=== PATIENT | female | born 1965 | race Hispanic/Latino ===

== ENCOUNTER 2020-11-20 08:57 | Emergency (ER) | payer BC ==
--- NOTE | 2020-11-20 09:58 | RAD REPORT ---
EXAM DESCRIPTION: RAD - Foot Left 3 View - 11/20/2020 9:52 am CLINICAL HISTORY: Left fourth toe pain COMPARISON: No comparisons FINDINGS: Oblique fracture is seen involving distal aspect of the proximal phalanx of the fourth toe with adjacent soft tissue swelling. Tiny calcaneal spur noted.
--- NOTE | 2020-11-20 10:13 | EDPHYS ---
Physician Documentation [facility] Name: Lorena Bowman Age: 55 yrs Sex: Female : 1965 Arrival Date: 11/20/2020 Time: 09:15 Bed 18 Private MD: ERIS Physician Ben Manjarrez HPI: 11/20 09:38 This 55 yrs old Female presents to ER via Ambulatory with complaints of Toe pm1 Injury. 09:38 The patient presents with pain, that is acute. The complaints affect the left fourth pm1 toe. Context: The problem was sustained at home, resulted from stubbing toe on furniture. the patient can fully bear weight, the patient is able to ambulate. Onset: The symptoms/episode began/occurred yesterday. Modifying factors: The symptoms are alleviated by elevation of extremity, the symptoms are aggravated by weight bearing, movement. Associated signs and symptoms: Pertinent positives: swelling, Pertinent negatives: numbness, tingling. Severity of symptoms: in the emergency department the symptoms are unchanged. The patient has not experienced similar symptoms in the past. The patient has not recently seen a physician. Historical: - Allergies: 09:19 No Known Allergies; ss - PSHx: 09:19 Hysterectomy; ss - Immunization history:: Adult Immunizations up to date. - Social history:: Smoking status: Patient denies any tobacco usage or history of. ROS: 09:38 MS/extremity: Positive for pain, tenderness, of the left fourth toe, Negative for pm1 deformity. 09:38 Constitutional: Negative for fever, chills, and weight loss, Cardiovascular: Negative for chest pain, palpitations, and edema, Respiratory: Negative for shortness of breath, cough, wheezing, and pleuritic chest pain, Skin: Negative for injury, rash, and discoloration, Neuro: Negative for headache, weakness, numbness, tingling, and seizure. 09:38 All other systems are negative. Exam: 09:38 Constitutional: This is a well developed, well nourished patient who is awake, alert, pm1 and in no acute distress. Head/Face: Normocephalic, atraumatic. 09:38 Skin: Warm, dry with normal turgor. Normal color with no rashes, no lesions, and no evidence of cellulitis. 09:38 Cardiovascular: Rate: normal, Rhythm: regular, Pulses: no pulse deficits are appreciated, brisk capillary refill to left 4th toe and all other left toes. 09:38 Musculoskeletal/extremity: Extremities: grossly normal except: noted in the left fourth toe: tenderness, There is no evidence of deformity, the left first toe, left second toe, left third toe, left fourth toe and left fifth toe Sensation intact. 09:38 Neuro: Exam negative for acute changes, Orientation: is normal, Mentation: is normal, Motor: is normal, moves all fours, Sensation: is normal, no obvious gross deficits. Vital Signs: 09:16 BP 136 / 73; Pulse 65; Resp 15; Temp 97.2(TE); Pulse Ox 98% on R/A; Weight 81.65 kg; ss Height 5 ft. 4 in. (162.56 cm); Pain 8/10; 10:30 BP 127 / 75; Pulse 67; Resp 17; Temp 97.5; Pulse Ox 99% ; bp 09:16 Body Mass Index 30.90 (81.65 kg, 162.56 cm) ss MDM: 09:21 Patient medically screened. pm1 09:29 ED course: Patient refused pain medications in the ER. pm1 09:47 Data reviewed: vital signs. Data interpreted: Pulse oximetry: on room air is 98 %. pm1 Interpretation: normal. 10:10 Counseling: I had a detailed discussion with the patient and/or guardian regarding: the pm1 historical points, exam findings, and any diagnostic results supporting the discharge/admit diagnosis, radiology results, the need for outpatient follow up, to return to the emergency department if symptoms worsen or persist or if there are any questions or concerns that arise at home. 10:17 ED course: Patient wants to take ibuprofen or Tylenol for pain at home. Does not want a pm1 prescription for anything stronger. 11/20 09:29 Order name: Foot Left 3 View XRAY; Complete Time: 10:09 pm1 11/20 10:10 Order name: Post-op Orthopedic Shoe; Complete Time: 10:30 pm1 11/20 10:17 Order name: Misc. Order: Jaron tape 4th toe; Complete Time: 10:30 pm1 Administered Medications: No medications were administered Disposition: 11/20/20 10:13 Discharged to Home. Impression: Other fracture of left lesser toe(s) - oblique fracture left fourth toe distal proximal phalanx. - Condition is Stable. - Discharge Instructions: Toe Fracture. - Medication Reconciliation Form, Thank You Letter, Antibiotic Education, Prescription Opioid Use form. - Follow up: Emergency Department; When: As needed; Reason: Worsening of condition. Follow up: Private Physician; When: 2 - 3 days; Reason: Recheck today's complaints, Continuance of care, Re-evaluation by your physician. - Problem is new. - Symptoms have improved. Addendum: 11/22/2020 09:38 Co-signature as Attending Physician, Ben Manjarrez MD I agree with the assessment and c norwood plan of care. Signatures: Dispatcher [employer] EDMS Ben Manjarrez MD MD cha Smirch, Shelby, RN RN ss Christo Steiner, SHAVON REPRESENTATIVE [employer] pm1 Randy Baeza RN RN bp Corrections: (The following items were deleted from the chart) 11/20 10:32 10:13 11/20/2020 10:13 Discharged to Home. Impression: Other fracture of left lesser bp toe(s) - oblique fracture left fourth toe distal proximal phalanx. Condition is Stable. Forms are Medication Reconciliation Form, Thank You Letter, Antibiotic Education, Prescription Opioid Use. Follow up: Emergency Department; When: As needed; Reason: Worsening of condition. Follow up: Private Physician; When: 2 - 3 days; Reason: Recheck today's complaints, Continuance of care, Re-evaluation by your physician. Problem is new. Symptoms have improved. pm1
--- NOTE | 2020-11-20 10:13 | ER ---
Nurse's Notes [facility] Name: Lorena Bowman Age: 55 yrs Sex: Female : 1965 Arrival Date: 11/20/2020 Time: 09:15 Bed 18 Private MD: Diagnosis: Other fracture of left lesser toe(s)-oblique fracture left fourth toe distal proximal phalanx Presentation: 11/20 09:16 Chief complaint: Patient states: L fourth toe pain after kicking wooden bed post ss yesterday morning. Coronavirus screen: Client denies travel out of the [place] in the last 14 days. Ebola Screen: Patient denies exposure to infectious person. Patient denies travel to an Ebola-affected area in the 21 days before illness onset. Initial Sepsis Screen: Does the patient meet any 2 criteria? No. Patient's initial sepsis screen is negative. Does the patient have a suspected source of infection? No. Patient's initial sepsis screen is negative. Risk Assessment: Do you want to hurt yourself or someone else? Patient reports no desire to harm self or others. Onset of symptoms was November 19, 2020. 09:16 Method Of Arrival: Ambulatory ss 09:16 Acuity: HEATHER 4 ss Triage Assessment: 09:20 General: Appears in no apparent distress. uncomfortable, obese, Behavior is bp cooperative, appropriate for age, anxious. Pain: Complains of pain in left fourth toe. EENT: No deficits noted. Neuro: No deficits noted. Cardiovascular: No deficits noted. Respiratory: No deficits noted. GI: No signs and/or symptoms were reported involving the gastrointestinal system. : No signs and/or symptoms were reported regarding the genitourinary system. Derm: No deficits noted. Musculoskeletal: Reports pain in left fourth toe. Historical: - Allergies: 09:19 No Known Allergies; ss - PSHx: 09:19 Hysterectomy; ss - Immunization history:: Adult Immunizations up to date. - Social history:: Smoking status: Patient denies any tobacco usage or history of. Screenin:31 Abuse screen: Denies threats or abuse. Denies injuries from another. Nutritional bp screening: No deficits noted. Tuberculosis screening: No symptoms or risk factors identified. Tuberculosis screening: No symptoms or risk factors identified. Fall Risk None identified. Assessment: :31 General: SEE TRIAGE NOTE. bp 10:30 Reassessment: PT D/C HOME AMBULATORY, DX WITH LEFT FOURTH TOE DISTAL FX. bp Vital Signs: 09:16 BP 136 / 73; Pulse 65; Resp 15; Temp 97.2(TE); Pulse Ox 98% on R/A; Weight 81.65 kg; ss Height 5 ft. 4 in. (162.56 cm); Pain 8/10; 10:30 BP 127 / 75; Pulse 67; Resp 17; Temp 97.5; Pulse Ox 99% ; bp 09:16 Body Mass Index 30.90 (81.65 kg, 162.56 cm) ED Course: 09:15 Patient arrived in ED. ds1 09:19 Triage completed. ss 09:19 Arm band placed on right wrist. ss 09:21 Christo Steiner NP is PHCP. pm1 09:21 Ben Manjarrez MD is Attending Physician. pm1 09:21 Randy Baeza, MAGDALENA is Primary Nurse. bp 09:31 Patient has correct armband on for positive identification. Placed in gown. Bed in low bp position. Call light in reach. Side rails up X2. 09:52 Foot Left 3 View XRAY In Process Unspecified. EDMS 10:30 No provider procedures requiring assistance completed. Patient did not have IV access bp during this emergency room visit. Jaron tape left fourth toe Ortho shoe applied to left foot. Administered Medications: No medications were administered Outcome: 10:13 Discharge ordered by . pm1 10:30 Discharged to home ambulatory. bp 10:30 Condition: stable 10:30 Discharge instructions given to patient, Instructed on discharge instructions, follow up and referral plans. Demonstrated understanding of instructions, follow-up care. 10:32 Patient left the ED. bp Signatures: Dispatcher [employer] EDKS Clay, Janet ds1 Lorene Art RN RN Christo Steiner NP PONY WORKER pm1 Randy Baeza, MAGDALENA RN bp
[2020-11-20 10:46] VITALS: BP 127/75; TEMP 97.5; O2SAT 99
== END 2020-11-20 10:32 | disposition home or self-care (01) ==
LOC: ER 08:57
DX: S92.512A Displaced fracture of proximal phalanx of left lesser toe(s), initial encounter for closed fracture (principal); W22.03XA Walked into furniture, initial encounter; Y92.009 Unspecified place in unspecified non-institutional (private) residence as the place of occurrence of the external cause
CPT/HCPCS: 99283

== ENCOUNTER 2023-01-23 11:16 | Emergency (ER) | payer BC ==
[2023-01-23] MEDS ORDERED: IBUPROFEN 200 MG TAB PO ONE (11:43)
[2023-01-23] MEDS ORDERED: ACETAMINOPHEN 500 MG TAB ONE (11:44)
--- NOTE | 2023-01-23 12:47 | RAD REPORT ---
EXAM DESCRIPTION: RAD - Foot Right 3 View - 01/23/2023 12:20 pm CLINICAL HISTORY: SMASH INJURY COMPARISON: No comparisons FINDINGS: Oblique fracture involves the proximal phalanx of the fifth toe with minimal displacement. Moderate plantar calcaneal spur.
--- NOTE | 2023-01-23 12:54 | ER ---
Nurse's Notes [facility] Name: Lorena Bowman Age: 57 yrs Sex: Female : 1965 Arrival Date: 01/23/2023 Time: 11:16 Bed 19 Private MD: Diagnosis: Fracture of proximal phalanx of lesser toe(s)-right 5th toe Presentation: 01/23 11:20 Chief complaint: Patient states: she hit the right side of her right foot this morning ap3 on her bed. patient states her right pinky toe is hurting up into the lower portion of her right extremity. patient reports her pain as a 8/10 on the pain scale at this time. Coronavirus screen: At this time, the client does not indicate any symptoms associated with coronavirus-19. Ebola Screen: No symptoms or risks identified at this time. Initial Sepsis Screen: Does the patient meet any 2 criteria? No. Patient's initial sepsis screen is negative. Does the patient have a suspected source of infection? No. Patient's initial sepsis screen is negative. Risk Assessment: Do you want to hurt yourself or someone else? Patient reports no desire to harm self or others. Onset of symptoms was January 23, 2023. 11:20 Method Of Arrival: Ambulatory ap3 11:20 Acuity: HEATHER 4 ap3 Triage Assessment: 11:22 General: Appears in no apparent distress. Behavior is calm, cooperative, appropriate ap3 for age. Pain: Complains of pain in right fifth toe Pain radiates to right carroll Pain currently is 8 out of 10 on a pain scale. at worst was 10 out of 10 on a pain scale. Pain began suddenly. Neuro: Level of Consciousness is awake, alert, obeys commands, Oriented to person, place, time, situation. Cardiovascular: Patient's skin is warm and dry. Respiratory: Airway is patent Respiratory effort is even, unlabored, Respiratory pattern is regular, symmetrical. Musculoskeletal: Reports pain in right fifth toe. Historical: - Allergies: 11:22 No Known Allergies; ap3 - Home Meds: 11:22 None [Active]; ap3 - PMHx: 11:22 breast cancer 2009; ap3 - PSHx: 11:22 mastectomy; hysterectomy; ap3 - Immunization history:: Client reports receiving the 2nd dose of the Covid vaccine. - Social history:: Smoking status: Patient denies any tobacco usage or history of. Screenin:23 [facility] ED Fall Risk Assessment (Adult) History of falling in the last 3 months, ap3 including since admission No falls in past 3 months (0 pts). Abuse screen: Denies threats or abuse. Nutritional screening: No deficits noted. Tuberculosis screening: No symptoms or risk factors identified. Assessment: 11:39 General: Appears in no apparent distress. comfortable, Behavior is calm, cooperative, ld1 appropriate for age. Pain: Complains of pain in right leg and right carroll and right foot and right fifth toe Pain does not radiate. Pain currently is 7 out of 10 on a pain scale. Quality of pain is described as throbbing. Neuro: Level of Consciousness is awake, alert, obeys commands, Oriented to person, place, time, situation. Cardiovascular: Capillary refill < 3 seconds Patient's skin is warm and dry. Respiratory: Airway is patent Respiratory effort is even, unlabored. GI: Abdomen is flat, non-distended. : No signs and/or symptoms were reported regarding the genitourinary system. EENT: No signs and/or symptoms were reported regarding the EENT system. Derm: No signs and/or symptoms reported regarding the dermatologic system. Musculoskeletal: No signs and/or symptoms reported regarding the musculoskeletal system. 13:12 Reassessment: Patient appears in no apparent distress at this time. No changes from ld1 previously documented assessment. Patient and/or family updated on plan of care and expected duration. Pain level reassessed. Patient is alert, oriented x 3, equal unlabored respirations, skin warm/dry/pink. Vital Signs: 11:20 BP 127 / 88; Pulse 72; Resp 17; Temp 97.5; Pulse Ox 98% ; Weight 81.65 kg; Height 5 ft. ap3 4 in. ; Pain 8/10; 11:39 BP 135 / 63; Pulse 75; Resp 18; Pulse Ox 98% on R/A; Pain 7/10; ld1 11:20 Body Mass Index 30.90 (81.65 kg, 162.56 cm) ap3 11:20 Pain Scale: Adult ap3 11:39 Pain Scale: Adult ld1 ED Course: 11:17 Patient arrived in ED. rg4 11:17 Lian Grijalva FNP-C is PHCP. snw 11:17 Ashford, Raza, DO is Attending Physician. snw 11:22 Triage completed. ap3 11:23 Arm band placed on right wrist. ap3 11:33 Nannette Dillon, RN is Primary Nurse. ap3 11:39 Rebecca Ashford, RN is Primary Nurse. ld1 11:39 Patient has correct armband on for positive identification. Placed in gown. Bed in low ld1 position. Call light in reach. Side rails up X2. Pulse ox on. NIBP on. Door closed. Noise minimized. Warm blanket given. 11:39 No provider procedures requiring assistance completed. Patient did not have IV access ld1 during this emergency room visit. 12:22 Foot Right 3 View XRAY In Process Unspecified. EDMS Administered Medications: 11:39 Drug: Ibuprofen PO 600 mg Route: PO; ld1 11:39 Drug: Acetaminophen PO 1000 mg Route: PO; ld1 Medication: 11:39 VIS not applicable for this client. ld1 Outcome: 12:53 Discharge ordered by MD. snw 13:12 Discharged to home ambulatory. ld1 13:12 Condition: stable 13:12 Discharge instructions given to patient, Instructed on discharge instructions, follow up and referral plans. Demonstrated understanding of instructions, follow-up care. 13:12 Patient left the ED. ld1 Signatures: Dispatcher [employer] EDMS Lian Grijalva FNP-C FNP-[place] rg4 Nannette Dillon, MAGDALENA NICOHLS ap3 Rebecca Ashford, MAGDALENA RN ld1
--- NOTE | 2023-01-23 12:55 | EDPHYS ---
Physician Documentation [facility] Name: Lorena Bowman Age: 57 yrs Sex: Female : 1965 Arrival Date: 01/23/2023 Time: 11:16 Bed 19 Private MD: ED Physician Raza Ashford HPI: 01/23 11:54 This 57 yrs old Female presents to ER via Ambulatory with complaints of Toe snw Injury. 11:54 Onset: The symptoms/episode began/occurred suddenly, this morning. The patient has not snw experienced similar symptoms in the past. It is unknown whether or not the patient has recently seen a physician. accidently kicked end of bed on right 5th toe. Historical: - Allergies: 11:22 No Known Allergies; ap3 - Home Meds: 11:22 None [Active]; ap3 - PMHx: 11:22 breast cancer 2008; ap3 - PSHx: 11:22 mastectomy; hysterectomy; ap3 - Immunization history:: Client reports receiving the 2nd dose of the Covid vaccine. - Social history:: Smoking status: Patient denies any tobacco usage or history of. ROS: 11:53 Constitutional: Negative for fever, chills, and weight loss, Eyes: Negative for injury, snw pain, redness, and discharge, ENT: Negative for injury, pain, and discharge, Neck: Negative for injury, pain, and swelling, Cardiovascular: Negative for chest pain, palpitations, and edema, Respiratory: Negative for shortness of breath, cough, wheezing, and pleuritic chest pain, Abdomen/GI: Negative for abdominal pain, nausea, vomiting, diarrhea, and constipation, Back: Negative for injury and pain, : Positive for injury, no bleeding, discharge, or swelling, MS/Extremity: Negative for injury and deformity, Skin: Negative for injury, rash, and discoloration, Neuro: Negative for headache, weakness, numbness, tingling, and seizure. Exam: 11:56 Constitutional: This is a well developed, well nourished patient who is awake, alert, snw and in no acute distress. Head/Face: Normocephalic, atraumatic. Eyes: Pupils equal round and reactive to light, extra-ocular motions intact. Lids and lashes normal. Conjunctiva and sclera are non-icteric and not injected. Cornea within normal limits. Periorbital areas with no swelling, redness, or edema. ENT: Nares patent. No nasal discharge, no septal abnormalities noted. Tympanic membranes are normal and external auditory canals are clear. Oropharynx with no redness, swelling, or masses, exudates, or evidence of obstruction, uvula midline. Mucous membranes moist. Neck: Trachea midline, no thyromegaly or masses palpated, and no cervical lymphadenopathy. Supple, full range of motion without nuchal rigidity, or vertebral point tenderness. No Meningismus. Chest/axilla: Normal chest wall appearance and motion. Nontender with no deformity. No lesions are appreciated. Cardiovascular: Regular rate and rhythm with a normal S1 and S2. No gallops, murmurs, or rubs. Normal PMI, no JVD. No pulse deficits. Respiratory: Lungs have equal breath sounds bilaterally, clear to auscultation and percussion. No rales, rhonchi or wheezes noted. No increased work of breathing, no retractions or nasal flaring. Abdomen/GI: Soft, non-tender, with normal bowel sounds. No distension or tympany. No guarding or rebound. No evidence of tenderness throughout. Back: No spinal tenderness. No costovertebral tenderness. Full range of motion. Skin: Warm, dry with normal turgor. Normal color with no rashes, no lesions, and no evidence of cellulitis. Neuro: Awake and alert, GCS 15, oriented to person, place, time, and situation. Cranial nerves II-XII grossly intact. Motor strength 5/5 in all extremities. Sensory grossly intact. Cerebellar exam normal. Normal gait. Psych: Awake, alert, with orientation to person, place and time. Behavior, mood, and affect are within normal limits. 11:56 Musculoskeletal/extremity: Extremities: grossly normal except: noted in the right fifth toe: decreased ROM, tenderness, Circulation is intact in all extremities. Sensation intact. Vital Signs: 11:20 BP 127 / 88; Pulse 72; Resp 17; Temp 97.5; Pulse Ox 98% ; Weight 81.65 kg; Height 5 ft. ap3 4 in. ; Pain 8/10; 11:39 BP 135 / 63; Pulse 75; Resp 18; Pulse Ox 98% on R/A; Pain 7/10; ld1 11:20 Body Mass Index 30.90 (81.65 kg, 162.56 cm) ap3 11:20 Pain Scale: Adult ap3 11:39 Pain Scale: Adult ld1 MDM: 11:26 Patient medically screened. snw 11:56 Differential diagnosis: fracture, sprain. Data reviewed: vital signs, nurses notes. I snw considered the following discharge prescriptions or medication management in the emergency department Medications were administered in the Emergency Department. See MAR. Counseling: I had a detailed discussion with the patient and/or guardian regarding: the historical points, exam findings, and any diagnostic results supporting the discharge/admit diagnosis, radiology results, the need for outpatient follow up, for definitive care, to return to the emergency department if symptoms worsen or persist or if there are any questions or concerns that arise at home. Special discussion: Based on the history and exam findings, there is no indication for further emergent testing or inpatient evaluation. I discussed with the patient/guardian the need to see the primary care provider for further evaluation of the symptoms. 01/23 11:30 Order name: Foot Right 3 View XRAY; Complete Time: 12:52 snw 01/23 12:52 Order name: Post-op Orthopedic Shoe; Complete Time: 13:12 snw Administered Medications: 11:39 Drug: Ibuprofen PO 600 mg Route: PO; ld1 11:39 Drug: Acetaminophen PO 1000 mg Route: PO; ld1 Disposition: 15:41 Co-signature as Attending Physician, Raza Ashford DO Darnell was immediately available on-site ms3 in the Emergency Department for consultation in the care of the patient. Disposition Summary: 01/23/23 12:53 Discharge Ordered Location: Home snw Condition: Stable snw Diagnosis - Fracture of proximal phalanx of lesser toe(s) - right 5th toe snw Followup: snw - With: Emergency Department - When: As needed - Reason: Worsening of condition Followup: snw - With: Private Physician - When: 2 - 3 days - Reason: Recheck today's complaints, Continuance of care, Re-evaluation by your physician Discharge Instructions: - Discharge Summary Sheet snw - Cast or Splint Care, Adult snw - RICE Therapy for Routine Care of Injuries snw - Toe Fracture snw Forms: - Work release form snw - Medication Reconciliation Form snw - Thank You Letter snw - Antibiotic Education snw - Prescription Opioid Use snw - Patient Portal [email or web address] snw Prescriptions: - Mobic 7.5 mg Oral Tablet - take 1 tablet by ORAL route once daily take with food; 20 tablet; Refills: 0, snw Product Selection Permitted Signatures: Dispatcher [employer] Lian Suárez, VETERINARY ASSISTANT TECHNICIAN-C VETERINARY ASSISTANT TECHNICIAN-Csnw Nannette Dillon RN RN ap3 Raza Ashford DO DO ms3 Rebecca Ashford RN RN ld1
[2023-01-23 13:44] VITALS: TEMP 97.5; O2SAT 98
[2023-01-23 13:45] VITALS: BP 135/63
== END 2023-01-23 13:12 | disposition home or self-care (01) ==
LOC: ER 11:16
DX: S92.511A Displaced fracture of proximal phalanx of right lesser toe(s), initial encounter for closed fracture (principal)
CPT/HCPCS: 99284